=== PATIENT | male | born 1980 | race Caucasian/White ===

== ENCOUNTER 2022-10-26 05:33 | Emergency (ER) | payer OTHER, SELFPAY ==
[2022-10-26 05:36] VITALS: BP 153/80; PULSE 93; RESP 16; TEMP 36.9; O2SAT 94
--- NOTE | 2022-10-26 05:43 | ED.GENADULT ---
HPI - General Adult General Chief complaint: Alcohol <Brendan Allison MD - Last Filed: 10/26/22 05:45> Stated complaint: psych eval <Brendan Allison MD - Last Filed: 10/26/22 05:45> Time Seen by Provider: 10/26/22 10:47 <Brendan Allison MD - Last Filed: 10/26/22 05:45> History of Present Illness HPI narrative: Patient 42-year-old gentleman who presents the emergency department with chief complaint of alcohol abuse. The patient reports that he has history of alcoholism and just recently completed detox at [facility] and reports that he has been on a binge for the last 7 days the patient reports he bought 1/5 of alcohol around 9 AM on Wednesday and is finished at some time between Wednesday and this morning. Patient states he would like to stop drinking again and is concerned that he may go through withdrawal. 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 Nursing and ancillary documentation was reviewed. <Brendan Allison MD - Last Filed: 10/26/22 05:45> [facility] Family History Family History: Family History Mother Family history of elevated blood lipids <Brendan Allison MD - Last Filed: 10/26/22 05:45> Social History Social History: Social History Smoking status: Never smoker Alcohol intake: current <Brendan Allison MD - Last Filed: 10/26/22 05:45> Exam Narrative: GENERAL: Well-appearing, well-nourished, and in no acute distress. HEAD: Normocephalic, atraumatic. EYES: PERRLA and EOMI. ENT: Nares clear, no rhinorrhea or epistaxis. Mucous membranes moist. NECK: Supple. CHEST: Clear to auscultation. No respiratory distress. HEART: Regular rate and rhythm. No murmur heard. Normal peripheral pulses. ABDOMEN: Soft, nontender, nondistended, normal active bowel sounds. EXTREMITIES: Normal range of motion. No edema. SKIN: Warm, dry, no rash. NEURO: No focal deficits. Alert and oriented x3. PSYCH: Normal mood and affect patient denies suicidal or homicidal ideation. <Brendan Allison MD - Last Filed: 10/26/22 05:45> Course Course Emergency Course: 07:00 - Patient was signed out to me by previous ED physician, Dr. Allison pending sober reevaluation. 10:45 - Patient has been ambulatory in the emergency department and tolerating p.o. fluids. On reexamination, he denies suicidal or homicidal ideations. He he requested repeat alcohol level with plans to reestablish himself in a rehab facility. 12:10 - Repeat alcohol 0.118. The patient is clinically sober. He knows of rehab facilities. Care coordination assisted with providing additional resources. Discussed return and emergency precautions including signs/symptoms of severe alcohol withdrawal and respiratory distress. The patient voiced understanding and is comfortable with the plan. All questions answered to his satisfaction. <Dung Khan MD - Last Filed: 10/26/22 12:12> Vital Signs Vital signs: Vital Signs Temperature 98.5 F 10/26/22 05:36 Pulse Rate 93 10/26/22 05:36 Respiratory Rate 16 10/26/22 05:36 Blood Pressure 153/80 H 10/26/22 05:36 Pulse Oximetry 94 10/26/22 05:36 Oxygen Delivery Room Air 10/26/22 05:36 Temperature 98.5 F 10/26/22 05:36 Pulse Rate 70 10/26/22 12:05 Respiratory Rate 18 10/26/22 12:05 Blood Pressure 146/67 H 10/26/22 1
[2022-10-26] MEDS: SODIUM CHLORIDE 0.9% IV 1,000 ML 999 ML IV CONT (05:58)
[2022-10-26] MEDS: THIAMINE 500 MG/NS 100 ML 500 MG/100 ML BAG 200 MG IVPB (05:58)
[2022-10-26 06:00] LABS: Basophils Percent Auto 0.3 % (0.2-1.2); Eosinophils Percent Auto 0.3 % (0-4.4); Hematocrit 41.8 % (42.0-52.0); Hemoglobin 14.3 g/dL (14.0-18.0); Lymphocytes Absolute Auto 1.22 K/mm3 (0.9-3.2); Lymphocytes Percent Auto 40.9 % (18.3-44.2); Mean Corpuscular HGB Conc 34.2 g/dl (32-36); Mean Corpuscular Hemoglobin 28.6 pg (26-34); Mean Corpuscular Volume 83.6 fl (80-100); Mean Platelet Volume 9.8 fl (7.4-10.4); Monocytes Absolute Auto 0.3 K/mm3 (0.1-0.6); Monocytes Percent Auto 9.4 % (2.6-8.5); Neutrophils Absolute Auto 1.5 K/mm3 (1.3-6.7); Neutrophils Percent Auto 49.1 % (45.5-73.1); Platelet Count Result 110 k/mm3 (150-375)
[2022-10-26 06:12] LABS: Acetaminophen < 10 ug/mL (10-30); Ethanol 230 mg/dL (<10); Salicylate < 1.0 mg/dL (2-20)
[2022-10-26 06:13] LABS: Alanine Aminotransferase 34 U/L (6-50); Albumin Level 4.3 g/dL (3.5-5.1); Alkaline Phosphatase 89 U/L (38-126); Anion Gap 9 mmol/L (8-16); Aspartate Amino Transferase 58 U/L (17-59); Bilirubin,Total 0.7 mg/dL (0.2-1.3); Blood Urea Nitrogen 13 mg/dL (9-20); Calcium 8.5 mg/dL (8.4-10.2); Carbon Dioxide 27 mmol/L (22-30); Chloride 105 mmol/L (98-107); Estimated CRCL calculation 134 ml/min; Estimated Glomerular Filt Rate > 60; Glucose 109 mg/dL (65-110); Potassium 3.3 mmol/L (3.4-5.0); Sodium 141 mmol/L (137-145)
--- NOTE | 2022-10-26 06:24 | PC.NURSE ---
42yr, M presents to the ED via EMS from [facility] for alcohol. Patient reports he has been drinking a 5th of Vodka everyday for about 7 days. Patient reports he was just released from [facility] after detox. Patient is wanting help to stop drinking. Patient denies SI or HI. Patient reports he is drunk and just in a bad place. Patient is calm and cooperative.
[2022-10-26 07:09] VITALS: BP 133/64; PULSE 81; RESP 18; O2SAT 98
--- NOTE | 2022-10-26 07:48 | PC.NURSE ---
Called dietary and ordered pt a breakfast tray.
[2022-10-26 07:55] LABS: Appearance Urine Clear (Clear); Bilirubin Urine 1+ (Negative); Blood Urine Negative (Negative); Color Urine Dark Yellow (Yellow); Glucose Urine UA Negative (Negative); Ketones Urine Negative (Negative); Leukocyte Esterase Ur Negative LEU/UL (Negative); Nitrate Urine Negative (Negative); Protein Urine 2+ mg/dL (Negative); Specific Grav Ur 1.025 (1.001-1.035); pH Urine 6.5 (5.0-9.0)
[2022-10-26 08:06] LABS: Mucus Urine Heavy /lpf; RBC Urine 0-2 /hpf (0-2); WBC Urine 0-3 /hpf
[2022-10-26 08:07] LABS: Add Urine Microscopic? YES
[2022-10-26 08:09] VITALS: BP 138/66; PULSE 76; RESP 16; O2SAT 95
[2022-10-26 08:11] LABS: Amphetamine Screen Urine Negative (Negative); Barbiturate Screen Urine Negative (Negative); Benzodiazepines Screen Urine Positive (Negative); Cannabinoid Screen Urine Positive (Negative); Cocaine Screen Urine Negative (Negative); Methadone Screen Urine Negative (Negative); Opiate Screen Urine Negative (Negative); Phencyclidine Screen Urine Negative (Negative)
[2022-10-26 09:25] LABS: Influenza A QL RT-PCR Negative (Negative); Influenza B QL RT-PCR Negative (Negative); SARS-CoV-2 RNA PCR Negative
[2022-10-26 10:02] VITALS: BP 139/65; PULSE 71; RESP 14; O2SAT 99
--- NOTE | 2022-10-26 11:53 | PCCCNOTE ---
1154: Phone call received from medical charge entry specialist Dan at 1121 to meet with patient about alcohol rehab. Met with patient in ER room 1. He is wanting alcohol rehab and has been at rehab before. Knows that he needs inpatient rehab versus outpatient. His [employer] insurance will tomorrow, will be using Medicaid. He knows which places to call for Medicaid and he has already been in contact with [facility]. He has been there before and when they spoke with him, [facility] recommended that he try [facility] in [place] for a new fresh place. Resources reviewed with patient, he has heard of [facility] but hasn't been there before. He states that he is comfortable with making calls and knows that it is up to him to do the work. He has a hotel for the night and has a smart phone. Patient is familiar with [facility] and comfortable with healthcare risk control consultant providing his phone number to [facility] for follow up and support after ER discharge. Patient's contact # is [phone]. Updated Dr. Khan and superintendent stevedoring Dan.
[2022-10-26 11:59] LABS: Ethanol 118 mg/dL (<10)
[2022-10-26 12:05] VITALS: BP 146/67; PULSE 70; RESP 18; O2SAT 97
== END 2022-10-26 12:44 | disposition home or self-care (01) ==
PROVIDERS: Emergency Medicine; Emergency Provider Preventive Medicine Aerospace Medicine; PCP Family Medicine
DX: F10.129 Alcohol abuse with intoxication, unspecified (principal); Z20.822 Contact with and (suspected) exposure to COVID-19
CPT/HCPCS: 36415; 80053; 80307; 81001; 85025; 87636; 96365; 99284; J3411; J7030